=== PATIENT | female | born 1990 | race Caucasian/White ===

== ENCOUNTER 2018-03-11 08:23 | Outpatient (CLI) | payer OTHER ==
[~2018-03-11] VITALS: Ht 157.5 cm; Wt 78.3 kg
[2018-03-11 08:39] VITALS: BP 126/76
[2018-03-11] MEDS ORDERED: MAPA500T2 PO (09:02)
[2018-03-11] MEDS ORDERED: PRENTAB9 PO (09:02)
[2018-03-11 09:20] LABS: AMORPHOUS SEDIMENT SMALL (NEGATIVE); APPEARANCE, URINE CLOUDY (CLEAR); BACTERIA, URINE AUTO 3+ (NEGATIVE); BILIRUBIN, URINE AUTO NEGATIVE (NEGATIVE); BLOOD, URINE BLOOD 3+ (NEGATIVE); COLOR, URINE YELLOW (YELLOW); GLUCOSE, URINE (UA) AUTO NEGATIVE (NEGATIVE); KETONE, URINE AUTO NEGATIVE (NEGATIVE); LEUKOCYTE ESTERASE, URINE AUTO 3+ (NEGATIVE); NITRITE, URINE AUTO NEGATIVE (NEGATIVE); PROTEIN, URINE AUTO 1+ mg/dL (NEGATIVE); RBC, URINE AUTO 19 /HPF (0-3); SPECIFIC GRAVITY URINE AUTO 1.011 (1.002-1.035); SQUAMOUS EPITHELIAL CELL UR AU 4 /HPF (0-6); UROBILINOGEN, URINE AUTO 0.2 mg/dL (0.0-2.0); WBC, URINE AUTO 145 /HPF (0-3)
[2018-03-11] MEDS ORDERED: KETOROLAC 30 MG/ML VIAL (J1885) IV ONE (09:30)
[2018-03-11] MEDS ORDERED: LR 1,000 ML IV ONE (09:30)
[2018-03-11 09:41] VITALS: BP 118/72
--- NOTE | 2018-03-11 09:44 | IPNPDOC ---
Text Note Date of Service The patient was seen on 03/11/18. NOTE 27 yo at 22+4 weeks gestation presents to L&D with a 2 day history of right upper back pain that has been radiating to her right flank and groin. Pain is coming and going, occasionally relieved with heat and tylenol. She also reports dysuria and feeling frequent urges to urinate and then being unable to do so. She denies any fevers/chills at home. She had one episode of vomiting yesterday but has otherwise been eating a drinking without issues, including today. She denies any obstetric complaints to include vaginal bleeding, discharge, pelvic pain, contractions, or leakage of fluid. Vitals - HR 90, BP 120s/70s, T 98.5 General - AAOX3, sitting up in bed, slightly uncomfortable appearing Back exam - Tenderness to palpation in right upper and lower back, radiating to flank. Negative CVA tenderness bilaterally. Abdomen - Gravid uterus, no fundal tenderness. Extremities - No edema FHR - 140s Labs: UA - SG 1.011, Leuk est 3+, negative nitrites, 3+ blood, 145 WBCs, 19 RBCs, 3+ bacteria, 4 squamous epithelial cells Urine culture - Sent Treatment: 1000ml IV fluid bolus, 30mg IV toradol, 1gm IV rocephin Clinical history, exam findings, and labwork concerning for nephrolithiasis, though early pyelonephritis cannot entirely be excluded. She is afebrile, not tachycardic, tolerating PO, and not acutely ill, and thus does not meet criteria for acute pyelo. Treated with IV fluid bolus and single dose of IV toradol with significant improvement in symptoms. Also given one dose IV rocephin. She has follow up arranged in the OBGYN clinic on Tuesday. I encouraged her to continue using heating pads and tylenol as needed for her symptoms and also the continue aggressive hydration at home. Return to care sooner than Tuesday for fevers/chills, worsening symptoms, or any other urgent concerns. All patient questions answered. Femi Tavares, DO VS,Fishbone, I+O VS, Fishbone, I+O Vital Signs Date Time Temp Pulse Resp B/P (MAP) Pulse Ox O2 Delivery O2 Flow Rate FiO2 03/11/18 08:39 98.5 90 18 126/76 (93) FEMI TAVARES DO Mar 11, 2018 09:43
[2018-03-11] MEDS ORDERED: NS 1,000 ML IV ONE (09:45)
[2018-03-11] MEDS ORDERED: cefTRIAXone SOD 1 GM in D5W MINI-BAG PLUS 50 ML IV ONE (10:00)
[2018-03-11 11:40] VITALS: BP 119/71
== END 2018-03-11 11:44 | disposition home or self-care (01) ==
LOC: M LDO 08:23
PROVIDERS: ATTEND Obstetrics & Gynecology
DX: O99.89 Other specified diseases and conditions complicating pregnancy, childbirth and the puerperium (principal); R30.0 Dysuria; R10.9 Unspecified abdominal pain; Z3A.22 22 weeks gestation of pregnancy
CPT/HCPCS: 81001; 87088; 87186; G0378; G0463; J0696; J1885

== ENCOUNTER 2018-03-16 13:03 | Outpatient (CLI) | payer OTHER ==
[~2018-03-16] VITALS: Ht 157.5 cm; Wt 79.7 kg
[~2018-03-16 13:03] MED LIST: MAPA500T2 PO; PRENTAB9 PO
[2018-03-16 13:20] VITALS: BP 119/69
[2018-03-16] MEDS ORDERED: LR 1,000 ML IV ONE (13:30)
[2018-03-16] MEDS ORDERED: CYCLOBENZAPRINE 10 MG TAB PO ONE (14:00)
[2018-03-16 14:07] VITALS: BP 117/71
[2018-03-16 14:25] LABS: HEMATOCRIT 34.7 % (36.0-47.0); HEMOGLOBIN 11.8 g/dl (12.0-15.5); MEAN CORPUSCULAR HEMOGLOBIN 29.8 pg (27.0-33.0); MEAN CORPUSCULAR VOLUME 87.6 fl (80.0-96.0); PLATELET COUNT, AUTOMATED 237 10^3/uL (150-450); RED BLOOD COUNT 3.96 10^6/uL (4.00-5.40); WHITE BLOOD COUNT 14.5 10^3/uL (4.0-10.0)
[2018-03-16 14:56] LABS: APPEARANCE, URINE CLEAR (CLEAR); BACTERIA, URINE AUTO 1+ (NEGATIVE); BILIRUBIN, URINE AUTO NEGATIVE (NEGATIVE); BLOOD, URINE BLOOD 1+ (NEGATIVE); COLOR, URINE COLORLESS (YELLOW); GLUCOSE, URINE (UA) AUTO NEGATIVE (NEGATIVE); KETONE, URINE AUTO NEGATIVE (NEGATIVE); LEUKOCYTE ESTERASE, URINE AUTO NEGATIVE (NEGATIVE); NITRITE, URINE AUTO NEGATIVE (NEGATIVE); PROTEIN, URINE AUTO NEGATIVE (NEGATIVE); RBC, URINE AUTO 0 /HPF (0-3); SQUAMOUS EPITHELIAL CELL UR AU 0 /HPF (0-6); UROBILINOGEN, URINE AUTO 0.2 mg/dL (0.0-2.0); WBC, URINE AUTO 0 /HPF (0-3)
[2018-03-16 15:17] LABS: ALT/SGPT 14 U/L (12-78); BILIRUBIN,TOTAL 0.2 MG/DL (0.2-1.0); BLOOD UREA NITROGEN 7 MG/DL (7-18); CALCIUM LEVEL 8.8 MG/DL (8.5-10.1); CARBON DIOXIDE LEVEL 20 MEQ/L (21-32); CHLORIDE LEVEL 106 MEQ/L (98-107); CREATININE FOR GFR 0.52 MG/DL (0.55-1.30); GLOMERULAR FILTRATION RATE > 60.0 (>60); GLUCOSE, FASTING 88 MG/DL (70-100); POTASSIUM SERUM 3.9 MEQ/L (3.5-5.1); SODIUM LEVEL 138 MEQ/L (136-145); TOTAL PROTEIN 6.6 GM/DL (6.4-8.2)
[2018-03-16 15:30] VITALS: BP 124/69
[2018-03-16] MEDS ORDERED: PHENAZOPYRIDINE 100 MG TAB PO ONE (15:45)
--- NOTE | 2018-03-16 16:15 | IPNPDOC ---
Text Note Date of Service The patient was seen on 03/16/18. NOTE 27 yo at 23+2 weeks gestation presents to L&D with 24 hours of right upper back pain radiating to her groin and dysuria. She was was seen on Tuesday for the same symptoms. Clinical history, labwork, and exam findings were suspicious for nephrolithiasis. She received IV toradol, and IV fluids with improvement in her symptoms. She reports feeling well until today when the symptoms returned. Tylenol and heating pads have provided her with some relief. It is very painful to urinate. She denies any fevers/chills, SOB, or n/v. She has been tolerating a regular diet. She also denies any obstetric complaints to include vaginal bleeding, discharge, pelvic pain, contractions, or leakage of fluid. Vitals - HR 70s-90s, BP 110-120s/70s-80s , T 98.4 General - AAOX3, sitting up in bed, pleasant and conversant, NAD Back exam - Tenderness to palpation in right upper and lower back, radiating to flank and groin. Negative CVA tenderness bilaterally. Abdomen - Gravid uterus, no fundal tenderness. Extremities - No edema FHR - 130s Labs: UA - SG 1.000, 1+ blood, neg nitrites, neg leuk est, 0 WBC, 0 RBCs, 0 epis, 1+ bacteria Urine culture - Sent. Urine culture from [id number] grew out proteus mirabilis CBC - 14.5>11.7/34.7<237 bmp - 138/3.9--106/20--7/0.52<88 AST/ALT - 01/04 Rads: Pending renal US Treatment: 1000ml IV fluid bolus, 10mg flexeril, 1gm IV rocephin, 200mg pyridium Clinical history, exam findings, and labwork concerning for nephrolithiasis. She is afebrile, not tachycardic, tolerating PO, and not acutely ill, and thus does not meet criteria for acute pyelo. Urine culture from [id number] grew out proteus. Treated with IV fluid bolus and single dose of flexeril and pyridium with significant improvement in symptoms. Also given one dose IV rocephin. Renal US ordered and currently pending. She feels much improved after above interventions and there is no indication for admission for pain control. If renal US results do not demonstrate obstructed ureter, likely will discharge home with pain meds and recommendation for aggressive hydration. May consider flomax at home. SBR given to Dr. Campbell who will be covering until 1930 this evening. Femi Tavares DO VS,Vitor, I+O VS, Vitor, I+O Laboratory Tests 03/16/18 14:07 Red Blood Count 3.96 L, Mean Corpuscular Volume 87.6, Mean Corpuscular Hemoglobin 29.8, Mean Corpuscular Hemoglobin Concent 34.0, Red Cell Distribution Width 12.2, Calcium Level 8.8, Aspartate Amino Transf (AST/SGOT) 11, Alanine Aminotransferase (ALT/SGPT) 14, Alkaline Phosphatase 67, Total Bilirubin 0.2, Total Protein 6.6, Albumin 3.0 L Vital Signs Date Time Temp Pulse Resp B/P (MAP) Pulse Ox O2 Delivery O2 Flow Rate FiO2 03/16/18 15:30 99.1 81 18 124/69 (87) 03/16/18 13:20 98 FEMI TAVARES DO Mar 16, 2018 16:15
[2018-03-16] MEDS ORDERED: cefTRIAXone SOD 1 GM in D5W MINI-BAG PLUS 50 ML IV ONE (16:30)
[2018-03-16 17:41] VITALS: BP 112/62
[2018-03-16 18:18] VITALS: BP 112/62
--- NOTE | 2018-03-16 18:28 | REP ---
RENAL AND BLADDER ULTRASOUND: Real-time sonographic evaluation of the kidneys performed and demonstrates the right kidney to be slightly larger than the left, right kidney measuring 12.8 x 6.4 x 5.4 cm and left kidney 10.8 x 5.1 x 5.6 cm. There is no hydronephrosis or nephrolithiasis on the left. However, on the right, there is mild hydroureteronephrosis with a stone in the distal end of the right ureter at the ureterovesical junction, measuring approximately 12 x 4 mm. With Doppler color evaluation, there are bilateral ureteral jets seen within the urinary bladder. No bladder mass or calculus is seen. IMPRESSION: Mild right hydroureteronephrosis. There is a stone at the right ureterovesical junction measuring approximately 12 x 4 mm. There are bilateral ureteral jets in the urinary bladder with Doppler color evaluation. Electronically Signed by Esteban Vázquez MD 03/16/2018 07:47 P
[2018-03-16 18:44] VITALS: BP 124/74
== END 2018-03-16 19:05 | disposition home or self-care (01) ==
LOC: M LDO 13:03
PROVIDERS: ATTEND Obstetrics & Gynecology
DX: O99.89 Other specified diseases and conditions complicating pregnancy, childbirth and the puerperium (principal); Z3A.23 23 weeks gestation of pregnancy; N13.2 Hydronephrosis with renal and ureteral calculous obstruction
CPT/HCPCS: 76775; 80053; 81001; 85027; 87086; 96361; 96365; G0378; G0463; J0696

== ENCOUNTER 2018-07-05 06:13 | Inpatient (IN) | payer OTHER ==
[~2018-07-05] VITALS: Ht 157.5 cm; Wt 93.2 kg
[2018-07-05] VITALS (7 sets, daily range): BP systolic 110–125; BP diastolic 51–73
[2018-07-05] MEDS ORDERED: LACTATED RINGER'S 1000 ML IV STA (06:28)
[2018-07-05] MEDS ORDERED: LR 1,000 ML IV SCH ×2 (06:28→12:16)
[2018-07-05] MEDS ORDERED: BICITRA 30ML SOLN UDC PO ONE (06:30)
[2018-07-05 06:56] LABS: HEMATOCRIT 35.9 % (36.0-47.0); MEAN CORPUSCULAR HEMOGLOBIN 29.2 pg (27.0-33.0); MEAN CORPUSCULAR HGB CONC 33.4 g/dl (32.0-36.5); MEAN CORPUSCULAR VOLUME 87.3 fl (80.0-96.0); PLATELET COUNT, AUTOMATED 165 10^3/uL (150-450); RED BLOOD COUNT 4.11 10^6/uL (4.00-5.40); WHITE BLOOD COUNT 15.3 10^3/uL (4.0-10.0)
[2018-07-05] MEDS ORDERED: OXYTOCIN INJ 10 UNITS/ML VIAL (J2590) As Ordered ONE ×2 (10:35→11:27)
[2018-07-05] MEDS ORDERED: MORPHINE PRES-FREE INJ 10 MG/10 ML VIAL (J2274) As Ordered ONE (10:35)
[2018-07-05] MEDS ORDERED: BUPIVACAINE/DEXTROSE 0.75% 2 ML AMP As Ordered ONE (10:38)
[2018-07-05] MEDS ORDERED: PHENYLephrine HCL 500 MCG/5 ML (100MCG/ML) SYRINGE (J2370) As Ordered ONE (10:43)
[2018-07-05] MEDS ORDERED: NALBUPHINE HCL 10 MG/ML AMP (J2300) IV PRN ×2 (10:52→13:00)
[2018-07-05] MEDS ORDERED: ONDANSETRON 4MG/2ML VIAL (J2405) IV PRN ×3 (10:52→13:00)
[2018-07-05] MEDS ORDERED: NALOXONE INJ 0.4 MG/1 ML VIAL (J2310) IV PRN ×2 (10:52)
[2018-07-05] MEDS ORDERED: diphenhydrAMINE INJ 50MG/ML VIAL (J1200) IV PRN (10:52)
[2018-07-05] MEDS ORDERED: METOCLOPRAMIDE INJ 10MG/2ML VIAL (J2765) IV PRN (10:52)
[2018-07-05] MEDS ORDERED: ONDANSETRON 4MG/2ML VIAL (J2405) As Ordered ONE (11:00)
[2018-07-05] MEDS ORDERED: dexameTHASONE 4 MG/ML 1ML VIAL (J1100) As Ordered ONE (11:00)
[2018-07-05] MEDS ORDERED: ePHEDrine SULFATE 25 MG/5 ML(5MG/ML) SYRINGE As Ordered ONE (11:53)
[2018-07-05] MEDS ORDERED: OXYTOCIN DRIP 30 UNITS in APPROPRIATE DILUENT 1 EA IV SCH (12:16)
[2018-07-05] MEDS ORDERED: MEASLES,MUMPS,RUBELLA VACCINE INJ (MMR-II) (90707) SC SCH (12:30)
[2018-07-05] MEDS ORDERED: RHOGAM 300 MCG (1500 IU) INJ (J2790) IM SCH (12:30)
[2018-07-05] MEDS ORDERED: PERCOCET 5MG/325MG TAB PO PRN ×2 (12:30)
[2018-07-05] MEDS ORDERED: OXYTOCIN 30 UNITS IN 0.9% NaCl 500ML IV BAG (J2590) As Ordered ONE (12:33)
[2018-07-05] MEDS ORDERED: fentaNYL 100 MCG/2 ML INJECTION (J3010) IV PRN (13:00)
[2018-07-05] MEDS ORDERED: KETOROLAC 30 MG/ML VIAL (J1885) IV PRN (13:00)
[2018-07-05] MEDS: KETOROLAC 30 MG/ML VIAL (J1885) IV SCH ×2 (15:01→21:03)
--- NOTE | 2018-07-05 15:36 | RO ---
DATE OF PROCEDURE: 07/05/2018 CLINICAL SERVICE: Obstetrics INDICATION FOR OPERATION: Regla is a 27-year-old G1, now P1-0-0-1 who was noted to have breech presentation at her 36 week visit and it was sustained so she was counseled on the options of external cephalic version versus scheduled primary section and she elected for a primary section. PREPROCEDURE DIAGNOSIS: Persistent breech presentation at 39 weeks. POSTPROCEDURE DIAGNOSIS: Persistent breech presentation at 39 weeks. OPERATIVE PROCEDURE: Primary low transverse section. SURGEON: Elsa Sheth MD WET PAN OPERATOR: Esteban Barnes MD MATERIAL FORWARDED TO THE LAB FOR EXAMINATION: None DESCRIPTION OF FINDINGS: Female in complete breech presentation, Apgars 7 and 8, weight 4060 grams or 8 pounds 15 ounces. Normal appearing uterus, fallopian tubes and ovaries. INFECTION CLASSIFICATION: 2. ESTIMATED BLOOD LOSS: 500 mL URINE OUTPUT: 200 mL of clear yellow urine. IV FLUIDS: 1700 mL of lactated Ringers. DESCRIPTION OF OPERATION After obtaining informed consent, Regla was taken to the operating room. She had Cee catheter and bilateral sequential compression devices placed. After she received spinal anesthesia, she was prepped and draped in normal sterile fashion in dorsal supine position with a left lateral tilt. She received 2 grams of Ancef prophylactically. Time-out was performed to confirm patient name, date of , procedure and indication. The team was in agreement. Spinal anesthesia was found to be adequate using an Allis clamp. Pfannenstiel skin incision was made with a scalpel and carried through to the underlying layer of fascia. Fascia was incised in the midline and the incision was extended laterally with Rodrigez scissors. Superior and inferior aspects of the fascial incision were grasped with the Suhail clamps, elevated and the underlying rectus muscles were dissected off bluntly and sharply. Peritoneum was entered digitally and the rectus muscles were in the midline. Peritoneal incision was extended superiorly and inferiorly with good visualization of the bladder. Bladder blade was inserted and the vesicouterine peritoneum was identified, grasped with pickups and entered sharply with Metzenbaum scissors. The incision was then extended laterally and the bladder flap was created digitally. Bladder blade was reinserted and the lower uterine segment was scored in a transverse fashion with a scalpel. Uterus was entered bluntly and the incision was extended with traction. Notably there was meconium stained fluid on entry into the uterus. Bladder blade was removed and with fundal pressure the 's pelvis was elevated to the level of the incision, left followed by right leg were delivered using Pinard's maneuvers. The left followed by right arm were delivered by Lovset's maneuvers and the head was delivered atraumatically using Wvrfzpmld-Owwmynx-Idcf's maneuver. Nose and mouth were suctioned with bulb suction. Cord was clamped times two and cut and the infant was handed off the awaiting nursing team. The was vigorous upon delivery. Placenta was removed with traction on the cord and uterine massage and sent off the field. Uterus was exteriorized and cleared of all clot and debris. Uterine incision was repaired with #0 Vicryl suture in a running locking fashion. Second layer of the #0-Monocryl was used to close the hysterotomy incision in an imbricating fashion. Uterine incision was inspected. Hemostasis was noted. Posterior cul-de-sac was irrigated and the uterus was then returned to the abdomen. The gutters were cleared of all clots. After reinspecting the hysterotomy, which showed no evidence of any bleeding, the peritoneum was then closed using #3-0 Vicryl suture in a running fashion. The fascia was reapproximated with #0 Vicryl suture in a running fashion. Dianne's fascia was reapproximated using #3-0 Vicryl suture in a running fashion. The skin edges were reapproximated using three inverted interrupted stitches using #3-0 Vicryl suture followed by a running subcuticular stitch using #4-0 Monocryl. The incision was cleaned using wet lap, dried with a dry lap. Steri-Strips were applied in the usual fashion perpendicular to the Pfannenstiel incision. Two strips of Telfa were layered on top of the Steri-Strips followed by a dry sterile towel. Surgical drapes were removed. Sterile towel was removed and a pressure dressing was applied over the entire surgical incision. The vagina was cleared of all blood clot without active bleeding noted. Fundus was firm at U minus 1 cm. All counts were correct times two. The procedure was without complications. The patient tolerated the procedure well and she was taken to the recovery room on labor and delivery in stable condition. MEREDITH
[2018-07-05] MEDS: DOCUSATE SODIUM 100 MG CAP PO SCH (21:03)
[2018-07-06 01:56] VITALS: BP 96/59
[2018-07-06] MEDS: KETOROLAC 30 MG/ML VIAL (J1885) IV SCH ×2 (02:46→09:19)
[2018-07-06 05:44] VITALS: BP 83/52
[2018-07-06 08:02] LABS: HEMATOCRIT 28.5 % (36.0-47.0); MEAN CORPUSCULAR HEMOGLOBIN 29.1 pg (27.0-33.0); MEAN CORPUSCULAR HGB CONC 31.9 g/dl (32.0-36.5); MEAN CORPUSCULAR VOLUME 91.1 fl (80.0-96.0); PLATELET COUNT, AUTOMATED 132 10^3/uL (150-450); RED BLOOD COUNT 3.13 10^6/uL (4.00-5.40); WHITE BLOOD COUNT 14.5 10^3/uL (4.0-10.0)
[2018-07-06 08:11] LABS: HEMOGLOBIN 9.1 g/dl (12.0-15.5)
[2018-07-06] MEDS: PRENATAL VITAMINS CHEWABLE TABLET PO SCH (09:19)
[2018-07-06] MEDS: DOCUSATE SODIUM 100 MG CAP PO SCH ×2 (09:19→21:17)
[2018-07-06 10:00] VITALS: BP 124/58
[2018-07-06 14:00] VITALS: BP 104/50
--- NOTE | 2018-07-06 16:50 | IPNPDOC ---
Progress Note Date of Service: July 06, 2018 Day#: 1 Progress Note PPD 1/post-op day 1 SUBJECT: Regla is a 27yo [id number] s/p uncomplicated scheduled PLTCS on 07/06 for breech presentation, doing well day # 1. She has been ambulating, voiding spontaneously without issue and tolerating regular diet. Breast feeding and supplementing with formula without issue. Reports lochia is minimal. She is passing flatus. No lightheadedness/dizziness. No f/c/n/v/SOB/CP. OBJECTIVE: VITAL SIGNS: Within normal limits, afebrile. Alert and oriented times three. Abdomen: Fundus firm at U-2. Soft, appropriately tender to palpation. Pfannensteil incision has steri strips overlying, no er ythema/induration/drainage. Extremities: trace edema of BLE Labs: pre-op H/H: 12/35.9 post-op H/H: 9.1/28.5 ASSESSMENT: Regla is a 27yo [id number] s/p uncomplicated scheduled PLTCS on 07/06 for breech presentation, doing well day # 1. Vitals within normal limits, afebrile, hemodynamically stable with no evidence of infection. PLAN: 1. routine /post-op care 2. percocet and Motrin for pain. 3. Encourage breast feeding and ambulation and use of IS 4. Regular diet 5. Possible discharge home tomorrow if meeting all criteria Dr. Elsa Sheth MD VS, I&O, 24H, Formerly [facility], 1928–1983 Vital Signs/I&O Vital Signs Date Time Temp Pulse Resp B/P (MAP) Pulse Ox O2 Delivery O2 Flow Rate FiO2 07/06/18 14:00 98.5 86 18 104/50 (68) 97 I&O- Last 24 Hours up to 6 AM 07/06/18 05:59 Intake Total 2580 ml Output Total 4850 ml Balance -2270 ml Laboratory Data 24H LABS Laboratory Tests 2 07/06/18 07:35: Nucleated Red Blood Cells % (auto) 0.0 CBC/BMP Laboratory Tests 07/06/18 07:35 Red Blood Count 3.13 L, Mean Corpuscular Volume 91.1, Mean Corpuscular Hemoglobin 29.1, Mean Corpuscular Hemoglobin Concent 31.9 L, Red Cell Distribution Width 14.0 Elsa Sheth MD July 06, 2018 16:50
[2018-07-06] MEDS: IBUPROFEN 800 MG TAB PO SCH (17:48)
[2018-07-06 18:00] VITALS: BP 113/58
[2018-07-06 22:00] VITALS: BP 109/58
[2018-07-07] MEDS: IBUPROFEN 800 MG TAB PO SCH ×2 (01:05→09:12)
[2018-07-07 02:00] VITALS: BP 116/63
[2018-07-07 06:00] VITALS: BP 108/63
--- NOTE | 2018-07-07 08:35 | IPNPDOC ---
Progress Note Date of Service: July 07, 2018 Day#: 2 Progress Note PPD 2/post-op day 2 SUBJECT: Regla is a 27yo [id number] s/p uncomplicated scheduled PLTCS on 07/06 for breech presentation, doing well day # 2. She has been ambulating, voiding spontaneously without issue and tolerating regular diet. Breast feeding and supplementing with formula without issue. Reports lochia is minimal. She had a bowel movement. No lightheadedness/dizziness. No f/c/n/v/SOB/CP. OBJECTIVE: VITAL SIGNS: Within normal limits, afebrile. Alert and oriented times three. Abdomen: Fundus firm at U-2. Soft, appropriately tender to palpation. Pfannensteil incision has steri strips overlying, no erythema/induration/drainage. Extremities: trace edema of BLE Labs: pre-op H/H: 12/35.9 post-op H/H: 9.1/28.5 ASSESSMENT: Regla is a 27yo [id number] s/p uncomplicated scheduled PLTCS on 07/06 for breech presentation, doing well day # 2. Vitals within normal limits, afebrile, hemodynamically stable with no evidence of infection. PLAN: 1. discharge home today 2. pt has home meds: percocet, motrin, colace 3. discussed return precautions at length: fevers/chills, increasing abdominal pain, evidence of wound infection such as drainage/redness, foul smelling discharge, breast redness/pain 4. next visit scheduled in [address] Sheth 5. vaginal rest 6 weeks and no heavy lifting Dr. Elsa Sheth MD VS, I&O, 24H, Fishbone Vital Signs/I&O Vital Signs Date Time Temp Pulse Resp B/P (MAP) Pulse Ox O2 Delivery O2 Flow Rate FiO2 07/07/18 06:00 98.5 91 16 108/63 (78) 99 I&O- Last 24 Hours up to 6 AM 07/07/18 06:00 Output Total 2100 ml Balance -2100 ml Elsa Sheth MD July 07, 2018 08:35
--- NOTE | 2018-07-07 08:38 | DS.PDOC ---
Discharge Summary General Date of Admission July 05, 2018 at 06:13 Date of Discharge July 07, 2018 Attending Physician: Elsa Sheth MD Discharge Summary PROCEDURES PERFORMED DURING STAY: PLTCS ADMITTING DIAGNOSES: 1. breech presentation at term DISCHARGE DIAGNOSES: 1. breech presentation at term COMPLICATIONS/CHIEF COMPLAINT: Breech Presentation. HISTORY OF PRESENT ILLNESS/HOSPITAL COURSE: Regla is a 27yo [id number] s/p uncomplicated scheduled PLTCS on 07/06 for breech presentation, doing well day # 2. She had a benign /post-op course. At time of discharge, vitals within normal limits, afebrile, hemodynamically stable with no evidence of infection. DISCHARGE MEDICATIONS: Please see below. ALLERGIES: Please see below. PHYSICAL EXAMINATION ON DISCHARGE: VITAL SIGNS: Within normal limits, afebrile. Alert and oriented times three. Abdomen: Fundus firm at U-2. Soft, appropriately tender to palpation. Pfannensteil incision has steri strips overlying, no erythema/induration/drainage. Extremities: trace edema of BLE LABORATORY DATA: Please see below. pre-op H/H: 12/35.9 post-op H/H: 9.1/28.5 DIET: regular DISPOSITION: home DISCHARGE PLAN/INSTRUCTIONS: 1. discharge home today 2. pt has home meds: percocet, motrin, colace 3. discussed return precautions at length: fevers/chills, increasing abdominal pain, evidence of wound infection such as drainage/redness, foul smelling discharge, breast redness/pain 4. next visit scheduled in [address] Sheth 5. vaginal rest 6 weeks and no heavy lifting DISCHARGE CONDITION: Stable TIME SPENT ON DISCHARGE: Greater than [address] Elsa Sheth MD Vital Signs/I&Os Vital Signs Date Time Temp Pulse Resp B/P (MAP) Pulse Ox O2 Delivery O2 Flow Rate FiO2 07/07/18 06:00 98.5 91 16 108/63 (78) 99 I&O- Last 24 Hours up to 6 AM 07/07/18 06:00 Output Total 2100 ml Balance -2100 ml Discharge Medications Scheduled No.137/Iron/Folic Acd ( Vitamin Tablet) 1 Tab Tab, 1 TAB PO DAILY, (Reported) Scheduled PRN Acetaminophen (Mapap) 500 Mg Tab, 650 MG PO Q4HP PRN for PAIN, (Reported) Allergies Coded Allergies: No Known Allergies (Unverified , 03/11/18) Elsa Sheth MD July 07, 2018 08:38
[2018-07-07] MEDS ORDERED: PERCOCET PO (08:48)
[2018-07-07] MEDS ORDERED: COLA100C5 PO (08:48)
[2018-07-07] MEDS ORDERED: IBUP80TA PO (08:48)
[2018-07-07] MEDS: PRENATAL VITAMINS CHEWABLE TABLET PO SCH (09:11)
[2018-07-07] MEDS: DOCUSATE SODIUM 100 MG CAP PO SCH (09:11)
== END 2018-07-07 12:00 | disposition home or self-care (01) | DRG 773 ==
LOC: M LDI 06:13 → M OBS 13:20
PROVIDERS: ADMIT Obstetrics & Gynecology; ATTEND Obstetrics & Gynecology
PROC: 10D00Z1 Extraction of Products of Conception, Low, Open Approach (ICD-10-PCS; principal; 2018-07-05 09:30)
DX: O32.1XX0 Maternal care for breech presentation, not applicable or unspecified (principal); Z37.0 Single live birth; Z3A.39 39 weeks gestation of pregnancy

== ENCOUNTER → 2018-10-15 | Outpatient (REF) | payer OTHER ==
[~2018-10-15] MED LIST changes: +COLA100C5 PO; +IBUP80TA PO; +PERCOCET PO
== END ==
LOC: M LAB REF 09:40
PROVIDERS: ATTEND Physician Assistant
DX: J02.9 Acute pharyngitis, unspecified (principal)